=== PATIENT | female | born 2000 | race Caucasian/White ===

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

== ENCOUNTER 2022-02-23 06:04 | Emergency (ER) | payer BC ==
[2022-02-23 09:57] VITALS: BP 127/68; PULSE 82
== END 2022-02-23 09:55 | disposition home or self-care (01) ==
LOC: JD.ED 06:04
DX: O99.892 Other specified diseases and conditions complicating childbirth (principal); R10.32 Left lower quadrant pain; Z3A.15 15 weeks gestation of pregnancy; Z91.018 Allergy to other foods; Z79.899 Other long term (current) drug therapy
CPT/HCPCS: 76815; 76815-26; 81001; 99284